=== PATIENT | male | born 1965 | race African-American/Black ===

== ENCOUNTER 2017-03-15 03:01 | Emergency (ER) | payer OTHER ==
[2017-03-15 03:41] LABS: ADD MAN DIFF? NO
[2017-03-15 03:43] LABS: BASO % 0 % (0-3); EOS # 0.1 x10^3/uL (0.0-0.7); EOS % 1 % (0-3); HEMATOCRIT 45.1 % (39.0-53.0); HEMOGLOBIN 15.1 g/dL (13.0-17.5); LYMPH % 8 % (24-48); MEAN CORPUSCULAR HEMOGLOBIN 31 pg (25-35); MEAN CORPUSCULAR HGB CONC 33 g/dL (31-37); MEAN CORPUSCULAR VOLUME 92 fL (79-100); MONO # 1.1 x10^3/uL (0.0-1.1); MONO % 9 % (0-9); NEUT # 9.8 x10^3uL (1.8-7.7); NEUT % 82 % (31-73); PLATELET COUNT 228 x10^3/uL (140-400); RED BLOOD COUNT 4.91 x10^6/uL (4.30-5.70); RED CELL DISTRIBUTION WIDTH 13.3 % (11.5-14.5); WHITE BLOOD COUNT 11.9 x10^3/uL (4.0-11.0)
[2017-03-15] MEDS: diphenhydrAMINE 50 MG/ML VIAL IVP (03:46)
[2017-03-15] MEDS: methylPREDNISolone SOD SUCC PF 125 MG/2 ML VIAL. IV (03:47)
[2017-03-15] MEDS: KETOROLAC 30 MG/ML INJ. IV (03:47)
[2017-03-15] MEDS: FAMOTIDINE 20 MG/2 ML VIAL IVP (03:47)
[2017-03-15 03:54] LABS: AGAP ISTAT 15 mmol/L (6-14); BUN ISTAT 15 mg/dL (8-26); CHLORIDE ISTAT 103 mmol/L (98-110); CREATININE ISTAT 0.9 mg/dL (0.5-1.4); GLUCOSE ISTAT 104 mg/dL (70-99); HEMATOCRIT ISTAT 47 % (37-52); ION CA ISTAT 1.12 mmol/L (1.13-1.32); POTASSIUM ISTAT 3.8 mmol/L (3.5-5.0); SODIUM ISTAT 136 mmol/L (135-145); TOT CO2 ISTAT 23 mmol/L (23-32)
[2017-03-15] MEDS: IPRATRPIUM/ALBUTEROL 0.5/2.5MG 3 ML NEBU. NEB (03:58)
[2017-03-15] MEDS ORDERED: CONTRAST GIVEN MC (04:15)
[2017-03-15] MEDS: IOHEXOL 300 MG/ML 100ML VIAL. IV (04:30)
[2017-03-15] MEDS ORDERED: PIPERACILLIN/TAZOBACTAM 4.5 GM in IV DEXTROSE 5% 100 ML IV (04:30)
[2017-03-15] MEDS: PIPERACILLIN/TAZO IV Push 4.5 GM VIAL. IVP (05:06)
[2017-03-15 15:04] LABS: INFLUENZA A PATIENT NEGATIVE (NEGATIVE); INFLUENZA B PATIENT NEGATIVE (NEGATIVE); OBC FLU VALID
[2017-03-16 11:53] LABS: NEGATIVE OBC STREP NEG; POSITIVE OBC STREP POS
== END 2017-03-15 06:00 | disposition short-term general hospital (02) ==
LOC: ER 03:01
DX: J36 Peritonsillar abscess (principal); K12.2 Cellulitis and abscess of mouth; D72.829 Elevated white blood cell count, unspecified; J45.909 Unspecified asthma, uncomplicated
CPT/HCPCS: 36415; 70491; 80047; 85025; 87070; 87804; 87804-59; 87880; 94640; 96374; 96375; 99285-25; J1200; J1885; J2543; J2930; J7620; Q9967; S0028

== ENCOUNTER → 2020-12-25 | Outpatient (CLI) | payer OTHER ==
[2017-03-15 05:01] VITALS: BP 134/76
[~2020-12-25] MED LIST: ACET-182 PO; ALBU2.5V8 IH; LABE100T5 PO; MONT10TA49 PO; OXYC5CAP PO; WARF3TAB50 PO
[2020-12-25 10:13] LABS: ALBUMIN 3.7 g/dL (3.4-5.0); CALCIUM 8.9 mg/dL (8.5-10.1); CREATININE 0.8 mg/dL (0.7-1.3); POTASSIUM 4.2 mmol/L (3.5-5.1)
[2020-12-25 10:32] LABS: BASO % 1 % (0-3); EOS # 0.2 x10^3/uL (0.0-0.7); EOS % 4 % (0-3); HEMATOCRIT 41.8 % (39.0-53.0); LYMPH % 21 % (24-48); MEAN CORPUSCULAR HEMOGLOBIN 32 pg (25-35); MEAN CORPUSCULAR HGB CONC 34 g/dL (31-37); MEAN CORPUSCULAR VOLUME 95 fL (79-100); MONO # 0.3 x10^3/uL (0.0-1.1); MONO % 7 % (0-9); NEUT % 67 % (31-73); PLATELET COUNT 263 x10^3/uL (140-400); RED BLOOD COUNT 4.41 x10^6/uL (4.30-5.70); RED CELL DISTRIBUTION WIDTH 15.7 % (11.5-14.5); WHITE BLOOD COUNT 4.5 x10^3/uL (4.0-11.0)
--- NOTE | 2020-12-25 12:23 | EKG ---
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
[2020-12-26 01:15] LABS: HEMOGLOBIN A1C 5.6 % (4.8-5.6)
== END ==
LOC: SURGPAT 12:35
PROVIDERS: ATTEND Orthopaedic Surgery
DX: Z01.818 Encounter for other preprocedural examination (principal); I45.10 Unspecified right bundle-branch block; R94.31 Abnormal electrocardiogram [ECG] [EKG]; M16.11 Unilateral primary osteoarthritis, right hip
CPT/HCPCS: 36415; 80048; 82040; 82306; 83036; 85025; 85610; 85651; 85730; 87641; 93005

== ENCOUNTER 2021-01-09 11:06 | Observation (INO) | payer OTHER ==
[2021-01-04 16:02] VITALS: BP 137/76
[~2021-01-09] VITALS: Ht 172.7 cm; Wt 77.7 kg
[~2021-01-09 11:06] MED LIST changes: +ACETAMINOPHEN 500 MG TABLET PO PRN; -ALBU2.5V8 IH; +GABAPENTIN 300 MG CAPSULE. PO PRN; +IV RINGERS,LACTATED 1000ML 1,000 ML IV SCH; +MELOXICAM 7.5 MG TABLET PO PRN; +MORPHINE SULFATE 5 MG, KETOROLAC 30MG VIAL 30 MG, ROPIVacaine 0.5% PF 60 ML, EPINEPHrin... INT ART ONE; -OXYC5CAP PO; +TRANEXAMIC ACID 1,000 MG in IV NS 50ML -- 1ST BAG INJ ONE; +TRANEXAMIC ACID 1,000 MG in IV NS 50ML -- 2ND BAG INJ ONE; -WARF3TAB50 PO; +fentaNYL PF VIAL 100 MCG/2 ML VIAL IVP PRN
[2021-01-09] MEDS ORDERED: ALBU2.5V8 IH (11:42)
[2021-01-09 11:46] VITALS: BP 147/89
[2021-01-09] MEDS ORDERED: FAMOTIDINE 20 MG/2 ML VIAL ONE (12:02)
[2021-01-09] MEDS ORDERED: MIDAZOLAM HCL/PF 2 MG/2 ML VIAL. ONE (12:02)
[2021-01-09] MEDS ORDERED: DEXAMETHASONE SOD PHOS 4 MG/ML VIAL ONE (12:02)
[2021-01-09] MEDS ORDERED: PROPOFOL 10 MG/ML (20ML) VIAL. IV ONE (12:02)
[2021-01-09] MEDS ORDERED: ONDANSETRON PF 4 MG/2 ML VIAL. ONE (12:02)
[2021-01-09] MEDS ORDERED: fentaNYL PF VIAL 100 MCG/2 ML VIAL ONE ×2 (12:02→16:03)
[2021-01-09] MEDS ORDERED: LIDOCAINE 2% PF 5 ML VIAL. ONE (12:03)
[2021-01-09 12:14] LABS: PROTHROMBIN TIME PATIENT 15.2 SEC (11.7-14.0)
[2021-01-09] MEDS ORDERED: VANCOMYCIN 1 GM VIAL. ONE (12:22)
[2021-01-09] MEDS ORDERED: PHENYLEPHRINE in 0.9% NACL PF 1 MG/10 ML SYRINGE. IV ONE (13:32)
[2021-01-09] MEDS ORDERED: ePHEDrine PF IN SALINE 50 MG/10 ML SYRINGE. IV ONE (13:38)
[2021-01-09] MEDS ORDERED: VASOPRESSIN 20 UNIT/ML VIAL. ONE (13:42)
[2021-01-09] MEDS ORDERED: KETAMINE HCL IN NACL, ISO-OSM 50 MG/5 ML SYRINGE ONE (13:47)
[2021-01-09] MEDS ORDERED: PHENYLEPHRINE 10 MG/ML VIAL. ONE ×2 (14:00→14:20)
[2021-01-09] MEDS ORDERED: HYDROmorphone 2 MG/ML VIAL ONE ×2 (14:15→16:49)
[2021-01-09] MEDS ORDERED: TRANEXAMIC ACID in NS IVPB 50 ML ONE (15:13)
[2021-01-09] MEDS ORDERED: SEVOFLURANE > 120 MINUTES. IH ONE (15:21)
[2021-01-09] MEDS: fentaNYL PF VIAL 100 MCG/2 ML VIAL IVP PRN ×2 (16:08→16:12)
[2021-01-09] MEDS ORDERED: PROCHLORPERAZINE 10 MG/2 ML VIAL. ONE (16:13)
[2021-01-09] MEDS: PROCHLORPERAZINE 10 MG/2 ML VIAL. IVP PRN ×2 (16:14→16:50)
[2021-01-09] MEDS ORDERED: MORPHINE SULFATE 2 MG/ML INJ. ONE (16:27)
[2021-01-09] MEDS: MORPHINE SULFATE 2 MG/ML INJ. IVP PRN ×2 (16:32→16:43)
[2021-01-09] MEDS: HYDROmorphone 2 MG/ML VIAL IVP PRN ×4 (16:52→17:23)
[2021-01-09] MEDS ORDERED: PROCHLORPERAZINE 5 MG TABLET. PO PRN (17:45)
[2021-01-09] MEDS ORDERED: DEXTROSE 50% 25 GM / 50ML DISP.SYRIN. IV PRN (17:45)
[2021-01-09] MEDS ORDERED: 0.9 % SODIUM CHLORIDE 10 ML DISP.SYRIN. IV PRN (17:45)
[2021-01-09] MEDS ORDERED: MORPHINE SULFATE 2 MG/ML INJ. IVP PRN (17:45)
[2021-01-09] MEDS ORDERED: ALBUTEROL SULFATE 2.5 MG/3 ML NEBU. INH PRN (17:45)
[2021-01-09] MEDS: IV NORMAL SALINE 1000ML BAG 1,000 ML IV SCH (17:45)
[2021-01-09] MEDS ORDERED: fentaNYL PF VIAL 100 MCG/2 ML VIAL IVP PRN (17:45)
[2021-01-09] MEDS ORDERED: diphenhydrAMINE 50 MG/ML VIAL IVP PRN (17:45)
[2021-01-09] MEDS ORDERED: CALCIUM CARBONATE 500 MG TAB.CHEW PO PRN (17:45)
[2021-01-09] MEDS: ONDANSETRON ODT 4 MG TAB.RAPDIS. PO SCH (18:00)
[2021-01-09] MEDS: ONDANSETRON PF 4 MG/2 ML VIAL. IVP SCH (18:00)
--- NOTE | 2021-01-09 18:30 | NUR ---
received from recovery. sleeps arouse to name. friend at bedside. iv fluids connected to pump
--- NOTE | 2021-01-09 18:45 | PDOC4 ---
Operative Note Operative Note Date of surgery: 01/09/2021 Preoperative diagnosis: Degenerative joint disease right hip Postoperative diagnosis: Same Operative procedure: Right total hip arthroplasty with anterior approach Surgeon Dimitri Sweat Band Sewer: Miguel erwin Anesthesia: General Estimated blood loss: 300 cc Complications: None Drains: None Operative indications: Please see my orthopedic clinic note and dictated history and physical for detailed operative indications and note that we covered risks benefits postoperative course of the procedure. We did discuss the goal of equa lizing his leg lengths and that may not be entirely possible due to stability concerns which would override. We specifically discussed the possibility of infection leg length inequality, nerve or blood vessel damage premature wear or loosening medical or other anesthetic complications among others. All his questions were answered and he wishes to proceed with surgical evaluation and treatment having given informed consent Operative text: Patient was identified procedure verified patient placed in the supine position on the [place] fracture table after adequate amounts of general anesthesia were administered. All bony prominences were well-padded and left hip was prepped and draped in the standard sterile fashion. After timeout was performed patient procedure identified and verified an incision was made just distal to the anterior superior iliac spine running along the tensor fascia estelita for a distance of about 6 inches. Fascia was incised tensor fascia estelita was taken laterally and circumflex vessels were located and coagulated and the anterior capsule was exposed with the rectus femoris gently retracted medially along with the underlying fascia that was dissected free. Capsule was split in a T-shaped incision and superior aspect of the capsule was excised and further superior release was carried out with the hip in external rotation. Hip was returned to 40 degrees external rotation and a napkin ring cut was made with an Avenir Grant broach for reference napkin ring was removed and femoral head was removed and sized. Reaming was carried out to a size 55 with a size 56 Biomet G7 acetabular shell was placed in proper version under fluoroscopic guidance and excellent scratch fit was noted. A 40 mm vitamin E liner was impacted into place. Femur was brought into maximum external rotation extension and adduction and release was carried out at the 11 o'clock position to free up the femur and retractors were placed medially and above the greater trochanter for maximum femoral exposure box osteotome was used along with the rattail rasp and successive size broaching up to a size 3 which provided excellent stability and fit within the canal. Calcar reaming was carried out and trial fitting with a - 3.5 40 mm head to reproduce leg length and offset appropriately under fluoroscopic guidance and matched leg lengths and offset to the contralateral left hip. Trial components were removed and a size 3 standard offset collared Avenir stem was impacted into place with a -3.5 ceramic 40 mm head. Excellent stability and range of motion were noted and leg length and offset were reproduced closely according to preoperative measurements and measurements from the contralateral side. Thorough irrigation carried out with normal saline solution and pulse lavage. Intra-articular mixture was injected subperiosteally throughout the joint capsule and subcutaneous areas and 1 g vancomycin sprinkled throughout the joint capsule area. Fascia was closed with #1 PDS strata fix suture in a running fashion subcutaneous closure with buried Vicryl skin closure with subcuticular Monocryl and a shadi dressing was applied. Patient was returned to recovery room in stable condition having tolerated the procedure well. Miguel erwin was present for the procedure and assisted in the patient positioning prepping draping retraction closure and dressings RUBY DAVIS MD Jan 09, 2021 18:45
--- NOTE | 2021-01-09 19:30 | HP ---
DATE OF SERVICE: 01/09/2021 ADMIT DATE: 01/09/2021 CHIEF COMPLAINT: Right hip pain and gait difficulties. HISTORY OF PRESENT ILLNESS: The patient is a 56-year-old male who states that overall pain has started about a year and a half ago and has increased to where it is very severe affecting his activities of daily living including impacting his ability to ride his bicycle, which is a desired activity, but most recently difficulty really even getting around walking without severe pain with minimal activity. He otherwise had tried to remain very active. More recently, uses a cane as a precaution and indicates that he has pain on startup. It is a bit improved when he starts to walk, but then becomes very severe with increased activities. It is in the right groin crease area with no radiation and accompanied by stiffness, especially with walking long distances. PAST MEDICAL HISTORY: Significant for seasonal allergies and hypertension. PAST SURGICAL HISTORY: He denies any past surgical history. FAMILY HISTORY: Noncontributory. SOCIAL HISTORY: Denies smoking, alcohol or drug use. MEDICATIONS: Include labetalol and another heart medication as well as an inhaler. ALLERGIES: He has no known drug allergies. REVIEW OF SYSTEMS: Denies any chest pain, shortness of breath, fever, chills, focal weakness, numbness, tingling or other constitutional symptoms. PHYSICAL EXAMINATION: VITAL SIGNS: Per admission sheet. HEENT: Atraumatic, normocephalic. HEART: Regular rate and rhythm. LUNGS: Clear to auscultation bilaterally. ABDOMEN: Benign. ORTHOPEDIC: Examination of the right hip reveals very limited motion in all planes and extreme pain on any attempted extremes of his motion, which is already very restricted. Motor strength is overall intact. There is no instability. Slight leg length discrepancy with the right hip being a bit shorter. Left hip has full range of motion. No tenderness over either trochanteric bursa. Negative straight leg raise bilaterally. Normal alignment, stability bilateral knees and ankles with intact motor function, distal pulses, sensation, reflexes, skin in both lower extremities throughout. LABORATORY DATA: X-rays show bone on bone degenerative change on the right hip and cystic changes in the superior acetabulum. IMPRESSION: Primary osteoarthritis, right hip. TREATMENT PLAN: We have discussed risks, benefits, postoperative course of total hip arthroplasty and the really limited nonoperative measures that he has already generally exhausted and would like to remain active. We therefore discussed risks, benefits, postoperative course of the total hip arthroplasty including the possibility of infection, nerve or blood vessel damage, leg length inequality, instability, premature wear or loosening, medical or other anesthetic complications among others. All his questions were answered and he does wish to proceed with total hip arthroplasty from an anterior approach and will include [facility] observation to follow. YESSENIA DR: Thai TID: [id number]
[2021-01-09] MEDS: MONTELUKAST SODIUM 10 MG TABLET. PO SCH (20:14)
[2021-01-09] MEDS: ceFAZolin SODIUM IV Push 1 GM VIAL. IVP SCH (20:14)
[2021-01-09 20:15] VITALS: BP 142/75
[2021-01-09] MEDS: LABETALOL HCL 100 MG TABLET. PO SCH (20:15)
[2021-01-09] MEDS ORDERED: WARFARIN 7.5 MG TABLET. PO ONE (21:00)
[2021-01-09 21:15] VITALS: BP 109/71
[2021-01-09 23:10] VITALS: BP 122/80
[2021-01-09] MEDS: ZOLPIDEM 5 MG TABLET. PO PRN (23:29)
[2021-01-10] MEDS: ceFAZolin SODIUM IV Push 1 GM VIAL. IVP SCH ×2 (00:49→06:26)
[2021-01-10] MEDS ORDERED: MAGNESIUM HYDROXIDE 2,400 MG/30 ML ORAL.SUSP. PO PRN (06:00)
[2021-01-10] MEDS: ONDANSETRON PF 4 MG/2 ML VIAL. IVP SCH ×3 (06:00→12:00)
[2021-01-10] MEDS ORDERED: GABAPENTIN 100 MG CAPSULE. PO SCH (06:00)
[2021-01-10] MEDS: ONDANSETRON ODT 4 MG TAB.RAPDIS. PO SCH ×3 (06:00→12:00)
[2021-01-10] MEDS: traMADol 50 MG TABLET PO SCH ×3 (06:24→17:44)
[2021-01-10 06:57] VITALS: BP 119/71
[2021-01-10] MEDS ORDERED: FLU VACC QUAD 21-22 (6MOS+) PF 0.5 ML SYRINGE. VAX IM ONE (07:30)
--- NOTE | 2021-01-10 09:00 | NUR ---
resting quietly in bed. has a moderate amount of bloody drainage.
[2021-01-10] MEDS: MULTIVITAMIN with MINERAL TABLET. PO SCH (09:08)
[2021-01-10] MEDS: oxyCODONE IR 5 MG TABLET PO PRN ×3 (09:08→20:07)
[2021-01-10] MEDS: SENNOSIDES/DOCUSATE 8.6/50MG TABLET. PO SCH (09:08)
[2021-01-10] MEDS: FERROUS SULFATE 325 MG TABLET. PO SCH ×2 (09:08→16:08)
[2021-01-10] MEDS: MELOXICAM 7.5 MG TABLET PO SCH (09:08)
[2021-01-10] MEDS: ACETAMINOPHEN 500 MG TABLET PO SCH ×3 (09:08→20:07)
[2021-01-10 09:10] VITALS: BP 131/77
--- NOTE | 2021-01-10 09:15 | NUR ---
denies pain. has good movement in his right hip , sensation and pulses. mod amount of old drainage on UBALDO dressing.
--- NOTE | 2021-01-10 10:06 | NUR ---
Pharmacy Warfarin Dosing Note S:Pharmacy consulted to assist with anticoagulation therapy started 01/09/21 with target INR: 1.6 - 2.5 O:JOHN KELLOGG is a 56 year old M with SEBAS LABS: Last INR: 1.3 Last HGB: Last HCT: Last PLT: Last dose of 7.5 mg given on 01/09/21 at 2014 Previous Regimen: Vitamin K given: N Drug Interaction Changes: Ongoing Drug Interactions: A:INR of 1.3 is below desired range. Target range for this patient is: 1.6 - 2.5 P: Warfarin dose: 5 mg Today at 1600. Bridge Therapy: None Next INR due tomorrow. Pharmacy anticoagulation service will continue to follow. Drew Bear [facility], 01/10/21 1007
[2021-01-10 11:30] VITALS: BP 143/73
[2021-01-10] MEDS ORDERED: ONDANSETRON ODT 4 MG TAB.RAPDIS. PO PRN (12:00)
[2021-01-10] MEDS ORDERED: ONDANSETRON PF 4 MG/2 ML VIAL. IVP PRN (12:00)
[2021-01-10] MEDS: LABETALOL HCL 100 MG TABLET. PO SCH ×2 (12:47→21:00)
--- NOTE | 2021-01-10 14:40 | NUR ---
at 1400 became lightheaded in therapy blood pressure was 77/45 hr 87 feels faint. legs elevated and chair tilted. 1410 blood pressure is 100/67 hr 80 with 1000cc normal saline started at 500 cc hr. 1415 blood pressure is 103/66 hr 88 feeling better 1420 sat up blood pressure is 94/58 denies lightheadedness. 1430--blood pressure is 88/58 hr 88 . 1445 He is feeling better ambulated to door then placed in recliner and taken to room. remains reclined wit feet elevated. ivf continue at 500cc hr.
--- NOTE | 2021-01-10 15:45 | NUR ---
resting quietly in bed. states blood pressure is better and he is feeling better. concerned that he caused his blood pressure to drop. reassured that he did not do anything wrong. ivf continue at 150 cchr encouraged to drink fluids. pain is increasing . and medicated
[2021-01-10] MEDS ORDERED: BISACODYL 10 MG SUPP.RECT. PR PRN (16:00)
[2021-01-10] MEDS ORDERED: WARFARIN 5 MG TABLET. PO ONE (16:00)
[2021-01-10] MEDS: IV NORMAL SALINE 1000ML BAG 1,000 ML IV SCH (16:10)
[2021-01-10 18:44] VITALS: BP 108/66
[2021-01-10] MEDS: MONTELUKAST SODIUM 10 MG TABLET. PO SCH (21:03)
[2021-01-10] MEDS: ZOLPIDEM 5 MG TABLET. PO PRN (21:03)
--- NOTE | 2021-01-10 21:42 | PDOC ---
PROGRESS NOTES Date of Service DATE: 01/10/21 TIME: 21:38 Subjective Subjective Problems overnight: Was doing very well earlier today ambulating with minimal assistance and said the hip feels good in terms of weightbearing mainly stiff and some muscle spasm; on my repeat visit this evening he had had a hypotensive episode but no loss of consciousness. Not symptomatic currently fully responsive eating and drinking and currently getting an IV saline bolus Objective Vital Signs Vital Signs Date Time Temp Pulse Resp B/P (MAP) Pulse Ox O2 Delivery O2 Flow Rate FiO2 01/10/21 20:07 20 Room Air 01/10/21 18:44 100.7 88 108/66 (80) 97 100.7 01/09/21 20:15 2.0 Physical Exam Leg lengths equal distal neurovascular status intact good range of motion shadi dressing change due to some bleeding Labs Laboratory Tests Test 01/09/21 11:55 01/10/21 07:35 Prothrombin Time 15.2 SEC (11.7-14.0) 16.0 SEC (11.7-14.0) Prothromb Time International Ratio 1.2 (0.8-1.1) 1.3 (0.8-1.1) Activated Partial Thromboplast Time 34 SEC (24-38) Laboratory Tests Test 01/10/21 07:35 Prothrombin Time 16.0 SEC (11.7-14.0) Prothromb Time International Ratio 1.3 (0.8-1.1) Imaging Intraoperative x-ray films show excellent placement and sizing of a total hip arthroplasty with equal leg lengths and restored offset Assessment Assessment POD#1 total hip arthroplasty Plan Plan of Care Now feels good with no symptoms, encouraged fluid intake and getting IV fluid bolus for a hypotensive episode but no symptoms or sequela currently, blood pressure medication held currently until and unless hypertensive Continue Coumadin anticoagulation mobilize with physical therapy Likely outpatient physical therapy on discharge Justicifation of Admission Dx: Justifications for Admission: Justification of Admission Dx: N/A RUBY DAVIS MD Jan 10, 2021 21:42
[2021-01-10 23:29] VITALS: BP 123/74
[2021-01-11] MEDS: ACETAMINOPHEN 500 MG TABLET PO SCH ×3 (03:00→15:08)
[2021-01-11 04:37] LABS: HEMATOCRIT 33.2 % (39.0-53.0); HEMOGLOBIN 11.3 g/dL (13.0-17.5)
[2021-01-11 04:45] LABS: PROTHROMBIN TIME PATIENT 21.2 SEC (11.7-14.0)
--- NOTE | 2021-01-11 05:50 | NUR ---
Slept in recliner most of the noc. UBALDO dressing removed, incision cleansed w/ Chloraprep, no active bleeding seen. Bordered gauze applied.
[2021-01-11 06:19] VITALS: BP 109/68
[2021-01-11] MEDS: traMADol 50 MG TABLET PO SCH ×3 (06:47→13:02)
[2021-01-11] MEDS: SENNOSIDES/DOCUSATE 8.6/50MG TABLET. PO SCH (08:36)
[2021-01-11] MEDS: MULTIVITAMIN with MINERAL TABLET. PO SCH (08:37)
[2021-01-11] MEDS: FERROUS SULFATE 325 MG TABLET. PO SCH (08:37)
[2021-01-11] MEDS: MELOXICAM 7.5 MG TABLET PO SCH (08:39)
[2021-01-11] MEDS: LABETALOL HCL 100 MG TABLET. PO SCH (09:00)
--- NOTE | 2021-01-11 09:10 | NUR ---
No c/o at this time. Up in chair watching TV. Anxious to go home today. Cont. monitor.
--- NOTE | 2021-01-11 09:41 | NUR ---
Pharmacy Warfarin Dosing Note S:Pharmacy consulted to assist with anticoagulation therapy started 01/09/21 with target INR: 1.6 - 2.5 O:JOHN KELLOGG is a 56 year old M with SEBAS LABS: Last INR: 1.9 Last HGB: 11.3 Last HCT: 33.2 Last PLT: -- Last dose of 5 mg given on 01/10/21 at 1608 Vitamin K given: N Drug Interaction Changes: Same Interacting Drug Ongoing Drug Interactions: Meloxicam A:INR of 1.9 is within desired range. Target range for this patient is: 1.6 - 2.5 P: Warfarin dose: 2.5 mg Prior to Discharge Bridge Therapy: None Next INR due 01/15/21 outpatient Pharmacy anticoagulation service will continue to follow. SHELLEY HUANG [facility], 01/11/21 0981
[2021-01-11] MEDS: oxyCODONE IR 5 MG TABLET PO PRN ×2 (10:07→15:08)
[2021-01-11 13:22] VITALS: BP 112/69
[2021-01-11] MEDS ORDERED: WARFARIN 2.5 MG TABLET. PO ONE (14:00)
[2021-01-11] MEDS ORDERED: OXYC5CAP PO (17:27)
[2021-01-11] MEDS ORDERED: WARF3TAB50 PO (17:27)
--- NOTE | 2021-01-11 17:30 | DISCH ---
DISCHARGE INSTRUCTIONS Condition on Discharge Condition on Discharge: Stable Activity After Discharge Activity Instructions for Disc: Activity as tolerated, Avoid exertion, Prog ressive ambulation Bathing Instructions: Shower-keep dressing dry, No Tub Bath until see Lifting Instructions after Dis: No heavy lifting, No pulling or pushing Exercise Instruction after Dis: Exercise per therapy, Progress as tolerated Driving Instructions after Dis: Do not drive Weight Bearing Status after Di: Full weight bearing Diet after Discharge Diet after Discharge: Regular Diet Texture: Regular Liquid Texture: Thin Liquid Swallowing Supervision: None needed Wound Incision Care Wound/Incision Care: Ice to area for comfort, Do not change dressing (Maintain shadi dressing, call if saturated, otherwise when suction machine stops at about 1 week postop, cut tail of dressing and tape over to maintain seal) Community/Resources/Services Services at Discharge: Outpatient Therapy (No formal hip precautions due to anterior approach, just avoid extreme ranges of motion) Contacting the DRE[facility] after DC Call your doctor for: Concerns you may have Follow-Up Follow Up With: Yusef Galvez on 01/23/21 at 10 am [phone] Treatment/Equipment after DC Adaptive Equipment Issued: None Warfarin Follow-Up Warfarin Follow UP: [facility] to monitor warfarin dosage and testing RUBY DAVIS MD Jan 11, 2021 17:30
--- NOTE | 2021-01-11 18:05 | NUR ---
Discharge instructions given. Answered questions and concerns. Verbalized understanding. Pt waiting for ride home.
--- NOTE | 2021-01-11 18:19 | DS ---
DATE OF DISCHARGE: 01/11/2021 ORTHOPEDIC DISCHARGE SUMMARY PRINCIPAL DIAGNOSIS: Degenerative joint disease of the right hip. PROCEDURE: Right total hip arthroplasty, anterior. DISPOSITION: Home with outpatient physical therapy. DISPOSITION MEDICATIONS: Include warfarin as directed by Anticoagulation Clinic; oxycodone 5 mg p.o. q. 4 hours p.r.n. pain, dispense #40. Continue preoperative medications except for holding his blood pressure medicine labetalol if his blood pressure is low or normal, resume the medication only if his blood pressure is above normal. ACTIVITY: Weightbearing as tolerated, progressive ambulation. Avoid extremes of range of motion of the hip, but no formal hip precautions. FOLLOWUP: Mr. Galvez 2 weeks postoperatively. BRIEF DESCRIPTION OF HOSPITAL COURSE: The patient underwent an uncomplicated right total hip arthroplasty, had some drainage necessitating a dressing change and on postoperative day #1, had had a bit of a hypotensive episode, which he recovered from after a fluid bolus and emphasized some more drinking along with his ongoing diet until he was urinating about once an hour. He had no further symptoms whatsoever as far as hypotension. Denied any chest pain, shortness of breath or other ongoing symptoms and on the evening of postoperative day #1 and all day postoperative day #2, continued to get around very well with physical therapy. Pain was reasonably controlled and he was discharged home in stable condition. YUVAL DR: Thai TID: [id number]
--- NOTE | 2021-01-11 18:32 | NUR ---
Discharge home, escorted out by w/c accompanied by brother.
--- NOTE | 2021-01-15 18:07 | PATHOLOGY ---
[facility] Accession Number: [id number] . 01 Material submitted: . femur - RIGHT FEMORAL HEAD. Modifiers: right, head . 01 Clinical history: . AVM ANTERIOR R HIP . 02 Diagnosis: Femoral head and separate segment of bone, anterior right hip arthroplasty: - Advanced degenerative arthritis with focal subarticular fibrosis and small focus of avascular necrosis. (JPM/db; 01/15/2021) LBQ 01/15/2021 1111 Local . 02 Electronically signed: . Magan Solomon MD, Pathologist NPI- [id number] . 01 Gross description: . The specimen is received in formalin, labeled "Saji Davidson, right femoral head". Received is a femoral head with a detached femoral neck measuring 4.8 x 4.3 x 3.4 and 4.8 x 4.5 x 1.1 cm in greatest dimensions. The articular surface is light adorno to dark adorno, roughened, and with signs of eburnation. Surface opposite of the articular surface displays a central cavitary defect. Sectioning reveals light adorno-yellow and focally hemorrhagic cut surfaces with no grossly distinct nodules or lesions. The specimen is submitted representatively in cassette A1 to A2, following decalcification.([facility]; 01/10/2021) [facility] 01/10/2021 1833 Local . 02 Pathologist provided ICD-10: M16.11 . 02 CPT . 603702, [id number] Specimen Comment: A courtesy copy of this report has been sent to [phone], [phone] Specimen Comment: [id number] Specimen Comment: Report sent to / DR URBINA Specimen Comment: A duplicate report has been generated due to demographic updates. Performed at: 01 [facility] [address], [place] [id number] MD Valente Weslh MD Phone: [phone] Performed at: 02 [facility] [address], [place] [id number] MD Magan Solomon MD Phone: [phone]
== END 2021-01-11 18:30 | disposition home or self-care (01) ==
LOC: SURG 11:06 → 4 SOUTHEST 17:35
PROVIDERS: ADMIT Orthopaedic Surgery; ATTEND Orthopaedic Surgery
DX: M16.11 Unilateral primary osteoarthritis, right hip (principal); I10 Essential (primary) hypertension; Z23 Encounter for immunization; Z71.85 Encounter for immunization safety counseling; Z79.899 Other long term (current) drug therapy; Z98.890 Other specified postprocedural states
CPT/HCPCS: 27130; 36415; 85014; 85018; 85610; 85730; 86850; 86900; 86901; 90471; 90686; 96374; 96376; 97116; 97150; 97162; 97166; 97530; 97535; A4213; A4930; A6258; A6550; C1755; C1776; G0378; G0379; J0171; J0690; J0780; J1100; J1170; J1885; J2250; J2270; J2370; J2704; J2795; J3010; J3370; J3490; J7030; 76000; 88304; 88311; J2405

== ENCOUNTER → 2021-02-12 | Outpatient (CLI) | payer OTHER ==
[~2021-02-12] MED LIST changes: -ACETAMINOPHEN 500 MG TABLET PO PRN; +ALBU2.5V8 IH; -GABAPENTIN 300 MG CAPSULE. PO PRN; -IV RINGERS,LACTATED 1000ML 1,000 ML IV SCH; -MELOXICAM 7.5 MG TABLET PO PRN; -MORPHINE SULFATE 5 MG, KETOROLAC 30MG VIAL 30 MG, ROPIVacaine 0.5% PF 60 ML, EPINEPHrin... INT ART ONE; +OXYC5CAP PO; -TRANEXAMIC ACID 1,000 MG in IV NS 50ML -- 1ST BAG INJ ONE; -TRANEXAMIC ACID 1,000 MG in IV NS 50ML -- 2ND BAG INJ ONE; +WARF3TAB50 PO; -fentaNYL PF VIAL 100 MCG/2 ML VIAL IVP PRN
[2021-02-12 10:19] LABS: PROTHROMBIN TIME PATIENT 17.5 SEC (11.7-14.0)
== END ==
LOC: LAB 09:54
PROVIDERS: ATTEND Orthopaedic Surgery
DX: Z51.81 Encounter for therapeutic drug level monitoring (principal); Z79.01 Long term (current) use of anticoagulants
CPT/HCPCS: 36415; 85610